=== PATIENT | male | born 1990 | race African-American/Black ===

== ENCOUNTER 2023-02-27 14:59 | Emergency (ER) | payer MEDICAID ==
[~2023-02-27] VITALS: Ht 177.8 cm; Wt 86.0 kg
[2023-02-27 15:05] VITALS: BP 123/77
[2023-02-27] MEDS ORDERED: BACDST PO (17:13)
[2023-02-27] MEDS ORDERED: CEPH500C PO (17:13)
== END 2023-02-27 17:27 | disposition home or self-care (01) ==
LOC: ER 14:59
DX: L72.0 Epidermal cyst (principal); M99.87 Other biomechanical lesions of upper extremity
CPT/HCPCS: 73200